=== PATIENT | female | born 1960 | race Caucasian/White ===

== ENCOUNTER 2016-09-09 12:48 | Emergency (ER) | payer OTHER ==
[~2016-09-09] VITALS: Ht 157.5 cm; Wt 74.8 kg
--- NOTE | ~2016-09-09 | EKG ---
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
[~2016-09-09 12:48] MED LIST: CARISOPRODOL 3350 MG PO; CYCLOBENZAPRINE5 MG PO; HYDROCODON-ACE1 EAC7 PO; PERCOCET 5-3251 EACH PO
[2016-09-09 13:35] LABS: ABSOLUTE NEUTROPHILS 3.4 thou/uL (1.4-8.2); BASOPHILS 0.4 % (0.0-2.0); EOSINOPHILS 3.8 % (0.0-3.0); HEMATOCRIT 37.5 % (37.0-47.0); HEMOGLOBIN 12.6 gm/dL (12.0-15.0); LYMPHOCYTES 40.1 % (24.0-44.0); MCH 30.1 pg (26.0-34.0); MCHC 33.6 g/dL (28.0-37.0); MCV 89.7 fL (80.0-100.0); MONOCYTES 8.6 % (1.0-8.0); PLATELET COUNT 257 thou/uL (150-400); POLYS 47.1 % (36.0-66.0); RBC 4.18 mil/uL (4.20-5.00); RDW 13.5 % (10.5-14.5); WBC 7.2 thou/uL (4.0-11.0)
[2016-09-09 13:39] LABS: MANUAL DIFF NO
[2016-09-09 13:44] LABS: ANION GAP 8 mmol/L (7-16); BUN 22 mg/dL (7-18); CALCIUM 8.8 mg/dL (8.5-10.1); CHLORIDE 108 mmol/L (98-107); CO2 27 mmol/L (21-32); CREATININE 0.8 mg/dL (0.6-1.3); GLUCOSE 104 mg/dL (70-99); POTASSIUM 4.1 mmol/L (3.5-5.1); SODIUM 143 mmol/L (136-145)
[2016-09-09] MEDS ORDERED: ZOLOFT100 MG PO (13:49)
[2016-09-09 13:52] LABS: TROPONIN-I < 0.04 ng/mL (<0.04-0.07)
[2016-09-09] MEDS ORDERED: CHLORZOXAZONE500 MG PO (13:52)
[2016-09-09] MEDS ORDERED: RESTORIL30 MG PO (13:52)
[2016-09-09] MEDS ORDERED: HEMP OIL (13:53)
[2016-09-09] MEDS ORDERED: GLUCOSAMINE HC500 MG PO (13:53)
[2016-09-09] MEDS ORDERED: FISH OIL 1,001000 M2 PO (13:53)
[2016-09-09 16:36] VITALS: BP 102/72
== END 2016-09-09 16:38 | disposition home or self-care (01) ==
LOC: ER 12:48
PROVIDERS: Emergency Medicine
DX: R07.89 Other chest pain (principal); G43.909 Migraine, unspecified, not intractable, without status migrainosus; M79.7 Fibromyalgia

== ENCOUNTER 2020-02-25 23:24 | Observation (INO) | payer OTHER ==
[~2020-02-25] VITALS: Ht 157.5 cm; Wt 83.5 kg
--- NOTE | ~2020-02-25 | O ---
[facility] [place] [address] OPERATIVE REPORT Name: KALEIGH WORRELL Room #: 438-P [facility] M.R.#: [id number] Admission: 02/26/20 Attend Phys: Heriberto Vences MD Discharge: Date of : 62 Report #: [id number] THIS REPORT FOR: cc: Miki Del Valle MD, Miki Meng,Sridhar Morrison MD ~ CC: Heriberto Del Valle DATE OF SERVICE: 02/26/2020 PREOPERATIVE DIAGNOSIS: Acute cholecystitis. POSTOPERATIVE DIAGNOSIS: Acute cholecystitis. OPERATION: Laparoscopic cholecystectomy. SURGEON: Sridhar Meng MD. ANESTHESIA: General. ESTIMATED BLOOD LOSS: Minimal. SPECIMEN: Gallbladder. DESCRIPTION OF PROCEDURE: After informed consent was obtained, the patient was brought to the operating room and placed supine. SCDs were placed and working, preoperative antibiotics were administered, general anesthesia was induced. The abdomen was prepped and draped in the usual sterile fashion. A 10 mm incision was made above the umbilicus. Fascia was incised and a trocar was placed. Pneumoperitoneum was established. Three right upper quadrant 5 mm ports were placed. Gallbladder was grasped at the fundus and retracted cephalad. Infundibulum was grasped and retracted laterally. I dissected out the cystic duct and cystic artery. The cystic duct and artery were clipped and ligated leaving 2 clips on the remaining duct and 1 on the remaining artery. Cystic plate was fully identified prior to clipping and cutting anything. The gallbladder was then taken off the liver bed with electrocautery. It was placed into an Endopouch and removed. Fascia was then closed with a rlsvit-kw-[id number] 0 Vicryl. Skin was closed with 4-0 Monocryl. Incisions were sealed with Dermabond. COMPLICATIONS: None. [facility] [address] [place] [address] OPERATIVE REPORT Name: KALEIGH WORRELL [id number] Admission: 02/26/20 Attend Phys: Heriberto Vences MD Discharge: Date of : 62 Report #: [id number] DISPOSITION: The patient was taken to recovery in satisfactory condition. By: [id number] Sridhar Meng MD /nt
[~2020-02-25 23:24] MED LIST changes: +CHLORZOXAZONE500 MG PO; +FISH OIL 1,001000 M2 PO; +GLUCOSAMINE HC500 MG PO; +HEMP OIL; +RESTORIL30 MG PO; +ZOLOFT100 MG PO
[2020-02-25 23:50] VITALS: BP 129/71
[2020-02-26] VITALS (7 sets, daily range): BP systolic 96–113; BP diastolic 60–78
[2020-02-26 00:28] LABS: URINE BILIRUBIN NEGATIVE (Negative); URINE BLOOD NEGATIVE (Negative); URINE CLARITY CLEAR; URINE COLOR YELLOW; URINE GLUCOSE-RANDOM* NEGATIVE (Negative); URINE KETONES NEGATIVE (Negative); URINE LEUKOCYTES-REFLEX NEGATIVE (Negative); URINE NITRITE-REFLEX NEGATIVE (Negative); URINE PROTEIN (DIPSTICK) NEGATIVE (Negative); URINE SPECIFIC GRAVITY 1.025 (1.005-1.035); URINE UROBILINOGEN 0.2 E.U./dl (0.2-1.0)
[2020-02-26 00:35] LABS: ABSOLUTE NEUTROPHILS 6.5 thou/uL (1.4-8.2); BASOPHILS 0.8 % (0.0-2.0); EOSINOPHILS 2.1 % (0.0-3.0); HEMATOCRIT 37.7 % (37.0-47.0); HEMOGLOBIN 12.5 gm/dL (12.0-15.0); MCH 29.9 pg (26.0-34.0); MCHC 33.1 g/dL (28.0-37.0); MCV 90.5 fL (80.0-100.0); MONOCYTES 7.3 % (1.0-8.0); PLATELET COUNT 166 thou/uL (150-400); POLYS 63.8 % (36.0-66.0); RBC 4.17 mil/uL (4.20-5.00); RDW 13.6 % (10.5-14.5); WBC 10.7 thou/uL (4.0-11.0)
[2020-02-26 00:45] LABS: ANION GAP 11 mmol/L (7-16); BUN 17 mg/dL (7-18); CALCIUM 8.8 mg/dL (8.5-10.1); CHLORIDE 102 mmol/L (98-107); CO2 27 mmol/L (21-32); GLUCOSE 122 mg/dL (74-106); SODIUM 140 mmol/L (136-145)
[2020-02-26 00:55] LABS: ALBUMIN 3.7 g/dL (3.4-5.0); LIPASE 79 U/L (73-393); SGOT 15 U/L (15-37); SGPT 23 U/L (30-65); TOTAL BILIRUBIN < 0.1 mg/dL (0.2-1.0); TOTAL PROTEIN 7.6 g/dL (6.4-8.2); TROPONIN-I <0.06 ng/mL (<0.06)
[2020-02-26] MEDS ORDERED: ACYCLOVIR 400400 MG PO (00:55)
[2020-02-26] MEDS ORDERED: ALPRAZOLAM 0.0.25 M1 PO (00:55)
[2020-02-26] MEDS ORDERED: SPIRONOLACTONE25 MG PO (00:56)
[2020-02-26] MEDS ORDERED: TIZANIDINE HCL2 M1 PO (00:56)
--- NOTE | 2020-02-26 06:43 | NUR ---
PT ARRIVED FROM ER @5645. A&OX4 ADMISSION DONE AND PT ORIENTED TO THE UNIT. PT UP AD SAL TO THE BATHROOM. VSS. CALL LIGHT AT REACH AND WILL CONT TO MONITOR.
--- NOTE | 2020-02-26 07:25 | EKG ---
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
--- NOTE | 2020-02-26 09:15 | NUR ---
chart review. cm wear own face mask and shield. visited with pt at bedside. surgeon came to visit her. she is getting ready to have gallbladder removed. she able to make her needs known, live in [facility] [place]. 10 steps then all on main level. son erna lives there. no rehab or hh in past. independent. manage own medication. drives vehicle. no anticipated needs, just ready to get home per robb. will cont following as needed for dc needs. per surgeon dc on saturday02/27/2020. dcp: home no needs.
--- NOTE | 2020-02-26 12:22 | NUR ---
Assumed care of pt at 0700. Pt NPO since midnight. States pain was better this am. Surgery consent signed. Pt went to surgery. Family waiting in the room.
--- NOTE | 2020-02-26 23:58 | NUR ---
PT IS ALERT AND ORIENTED. PLEASNT. UP AD SAL IN ROOM. AFEBRILE.VOIDING OKAY PER BATHROOM. LAP SITES TO ABDOMEN LOOK OKAY, NO MORE DRAINAGE NOTED IN THOSE SITES REINFORCED WITH GAUZE.CALL LIGHT WITHIN REACH.
[2020-02-27 08:16] VITALS: BP 109/73
[2020-02-27] MEDS ORDERED: MOVE FREE ULTR1 EAC2 PO (08:57)
[2020-02-27] MEDS ORDERED: NORCO 10-325 T1 EACH PO (09:25)
[2020-02-27 09:59] VITALS: BP 109/73
--- NOTE | 2020-02-27 10:53 | NUR ---
PT CARE ASSUMED AT 0700. A&Ox4. PT UP WALKING THE HALLWAYS. PAIN CONTROLLED WELL WITH PAIN MEDICATION ON BOARD. LAPSITESx4 MINIMAL DRAINAGE FROM [place]. IV SITE WITH NO REDNESS OR EDEMA, SALINE LOCKED. DISCHARGE INSTRUCTIONS GIVEN, NO QUESTIONS ASKED. DISCAHRGED WITH SON.
--- NOTE | 2020-02-29 18:06 | PATH ---
[facility] [address] [place] [address] PATHOLOGY RPT PROCEDURE Name: MANDY DESIR Room #: 438-P [facility] Abdullahi MIlia#: [id number] Admission: 02/26/20 Date of : 62 Discharge: 02/27/20 Report #: [id number] Path Case #: [id number] [facility] Accession Number: [id number] . 01 Material submitted: . gallbladder - GALLBLADDER . 01 Clinical history: . ACUTE CHOLECYSTITIS CHOLELITHIASIS . 02 Diagnosis: Gallbladder, cholecystectomy: - Mild chronic cholecystitis. - Cholelithiasis. (IUV:pit 02/29/2020) QTP 02/29/2020 1619 Local . 02 Electronically signed: . Alecia Ochoa MD, Pathologist NPI- [id number] . 01 Gross description: . Received in formalin labeled "Mandy Desir gallbladder" is an intact cholecystectomy specimen measuring 8.0 x 3.5 x 1.6 cm. The serosa is pink-morris and smooth with a full thickness defect in the fundus measuring 0.6 cm. The specimen is opened to reveal morris-green and velvety and focally hemorrhagic mucosa without polyps or masses. The average wall thickness is 0.3 cm. Multiple yellow morris bosselated calculi and fragments of calculi are present, measuring in aggregate 2.6 x 2.6 x 1.0 cm and ranging from 0.1-1.3 cm in greatest dimension. Butter Grader sections of the fundus and body and the cystic duct margin are submitted in A1. ([facility]; 02/28/2020) [facility]/P 02/29/2020 0723 Local . 02 Pathologist provided ICD-10: K80.10 . 02 CPT . 755045 Specimen Comment: A courtesy copy of this report has been sent to [phone] Specimen Comment: [phone] Specimen Comment: Report sent to ,DR ANDRADE / DR WU Performed at: [address] [id number] [place] [address] PATHOLOGY RPT PROCEDURE Name: MANDY DESIR Room #: 438-P [facility] Abdullahi Cody#: [id number] Admission: 02/26/20 Date of : 62 Discharge: 02/27/20 Report #: [id number] Path Case #: [id number] MD Curtis Norris MD Phone: [phone] Performed at: [address] [id number] MD Alecia Ochoa MD Phone: [phone]
== END 2020-02-27 10:52 | disposition home or self-care (01) ==
LOC: ER 23:24 → 4S 02-26 02:55 → EROBS 02-26 02:55 → 4S 02-26 03:41
PROVIDERS: Emergency Medicine; ADMIT Surgery; ATTEND Surgery
DX: K80.10 Calculus of gallbladder with chronic cholecystitis without obstruction (principal); G43.909 Migraine, unspecified, not intractable, without status migrainosus; M19.90 Unspecified osteoarthritis, unspecified site; M79.7 Fibromyalgia; Z79.899 Other long term (current) drug therapy; Z87.891 Personal history of nicotine dependence; Z20.828 Contact with and (suspected) exposure to other viral communicable diseases
CPT/HCPCS: 50010; 50101; 50249; 50411; 51489; 52265; 52266; 53307; 53312; 53314; 54118; 55245; 56462; 56525; 62110; 62900

== ENCOUNTER 2020-12-18 11:51 | Emergency (ER) | payer OTHER ==
[~2020-12-18] VITALS: Ht 157.5 cm; Wt 79.4 kg
[~2020-12-18 11:51] MED LIST changes: +ACYCLOVIR 400400 MG PO; +ALPRAZOLAM 0.0.25 M1 PO; +MOVE FREE ULTR1 EAC2 PO; +NORCO 10-325 T1 EACH PO; +SPIRONOLACTONE25 MG PO; +TIZANIDINE HCL2 M1 PO
[2020-12-18 12:28] LABS: ABSOLUTE NEUTROPHILS 3.2 thou/uL (1.4-8.2); BASOPHILS 0.5 % (0.0-2.0); EOSINOPHILS 2.2 % (0.0-3.0); HEMATOCRIT 36.9 % (37.0-47.0); HEMOGLOBIN 12.4 gm/dL (12.0-15.0); LYMPHOCYTES 35.1 % (24.0-44.0); MCH 30.5 pg (26.0-34.0); MCHC 33.5 g/dL (28.0-37.0); MCV 91.1 fL (80.0-100.0); MONOCYTES 9.5 % (1.0-8.0); PLATELET COUNT 214 thou/uL (150-400); POLYS 52.7 % (36.0-66.0); RBC 4.05 mil/uL (4.20-5.00); RDW 13.8 % (10.5-14.5)
--- NOTE | 2020-12-18 12:34 | EKG ---
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
[2020-12-18 12:45] LABS: ANION GAP 7 mmol/L (7-16); BUN 20 mg/dL (7-18); CALCIUM 8.7 mg/dL (8.5-10.1); CHLORIDE 107 mmol/L (98-107); CO2 28 mmol/L (21-32); CREATININE 0.8 mg/dL (0.6-1.0); GLUCOSE 102 mg/dL (74-106); POTASSIUM 4.2 mmol/L (3.5-5.1); SODIUM 142 mmol/L (136-145)
[2020-12-18 12:50] LABS: ALBUMIN 3.5 g/dL (3.4-5.0); SGOT 13 U/L (15-37); SGPT 24 U/L (14-59); TOTAL BILIRUBIN 0.2 mg/dL (0.2-1.0); TOTAL PROTEIN 7.1 g/dL (6.4-8.2); TROPONIN-I <0.06 ng/mL (<0.06)
[2020-12-18] MEDS ORDERED: OMEPRAZOLE40 MG PO (14:44)
[2020-12-18] MEDS ORDERED: CARAFATE 1 GM TA1 G1 PO (14:44)
[2020-12-18 15:03] VITALS: BP 120/66
== END 2020-12-18 15:04 | disposition home or self-care (01) ==
LOC: ER 11:51
PROVIDERS: Physician Assistant
DX: K29.70 Gastritis, unspecified, without bleeding (principal); G43.909 Migraine, unspecified, not intractable, without status migrainosus; F41.9 Anxiety disorder, unspecified; Z90.710 Acquired absence of both cervix and uterus; Z90.89 Acquired absence of other organs; Z79.891 Long term (current) use of opiate analgesic; Z79.899 Other long term (current) drug therapy; Z88.2 Allergy status to sulfonamides; Z91.041 Radiographic dye allergy status